=== PATIENT | male | born 1990 | race Caucasian/White ===

== ENCOUNTER 2021-06-21 08:16 | Emergency (ER) | payer MEDICAID, OTHER ==
[~2021-06-21] VITALS: Ht 172.7 cm; Wt 75.0 kg
[2021-06-21] MEDS ORDERED: diazePAM 5MG TABLET PO ONE (09:55)
[2021-06-21] MEDS ORDERED: KETOROLAC 30 MG/ML 1ML VIAL IM ONE (09:55)
[2021-06-21] MEDS ORDERED: TIZA2CAP PO (11:03)
[2021-06-21 11:14] VITALS: BP 112/66
== END 2021-06-21 11:20 | disposition home or self-care (01) ==
LOC: M ED 08:16
DX: M54.42 Lumbago with sciatica, left side (principal); M51.26 Other intervertebral disc displacement, lumbar region; M51.27 Other intervertebral disc displacement, lumbosacral region; M50.30 Other cervical disc degeneration, unspecified cervical region; F17.200 Nicotine dependence, unspecified, uncomplicated; Z88.8 Allergy status to other drugs, medicaments and biological substances
CPT/HCPCS: 72131; 96372; 99283; J1885